=== PATIENT | female | born 1945 | race Caucasian/White ===

== ENCOUNTER → 2016-12-11 | Outpatient (CLI) | payer OTHER | LOC: CIMAGING 10:31 | PROVIDERS: ATTEND Family Medicine | DX: Z12.31 Encounter for screening mammogram for malignant neoplasm of breast (principal) | CPT/HCPCS: G0202 ==

== ENCOUNTER 2017-03-04 19:35 | Emergency (ER) | payer OTHER ==
--- NOTE | 2017-03-04 20:29 | EDPHY ---
H & P Smoking Status: Former smoker Time Seen by Provider: 03/04/17 20:15 HPI/ROS: CHIEF COMPLAINT: Syncope, head injury HISTORY OF PRESENT ILLNESS: 72-year-old female presents to the emergency department by private vehicle with her daughter after having a syncopal episode 2 days ago. The patient was in [place] and had a syncopal episode and fell and hit her head on the concrete floor. She had loss of consciousness. EMS was contacted and apparently the patient states that they told her not to go to the hospital because of possibly jeanette the flu with all sick patients in [place]. The patient flew back to [place] where she lives and her daughter brought her to the emergency department for evaluation. The patient complains of posterior headache associated with the lump on the back of her head where she hit her head. She does remember feeling a bit dizzy and lightheaded. She thinks that she may have been dehydrated. She has a history of COPD and typically uses her oxygen at night. She does states that since returning to [place] she has required oxygen even during the daytime. She has also had a productive cough for last few days. She did not receive a flu shot this year. She denies chest pain or difficulty breathing currently. Denies abdominal pain. Denies neck or back pain. Denies paresthesias in her upper or lower extremities. REVIEW OF SYSTEMS: Constitutional: No fever, no chills. Eyes: No double or blurry vision. ENT: No sore throat. Respiratory: Cough. no shortness of breath. Cardiac: No chest pain. Gastrointestinal: No abdominal pain, vomiting or diarrhea. Genitourinary: No dysuria. Musculoskeletal: No neck or back pain. Skin: No rashes. Neurological: headache. (Elton Arthur) Past Medical/Surgical History: COPD (Elton Arthur) Social History: Single and lives with her daughter in [place] (Elton Arthur) Physical Exam: General Appearance: Alert, no distress. Mentating normally and answering questions appropriately. Patient has palpable lump to the right posterior aspect of the scalp overlying occiput. No abrasion or puncture wound. Initial O2 saturation was 83% on room air. Patient typically uses 2 L nasal cannula oxygen. Eyes: Pupils equal and round. Extraocular motions are all intact. ENT: Mouth: Mucous membranes moist. No dental injury or malocclusion. Respiratory: No wheezing, rhonchi, or rales, lungs are clear to auscultation. Cardiovascular: Regular rate and rhythm. Gastrointestinal: Abdomen is soft and nontender, no masses, no rebound or guarding, bowel sounds normal. Neurological: Alert and oriented x 3, cranial nerves II through XII grossly intact Skin: Warm and dry, no rashes. Musculoskeletal: Nontender to palpate along the cervical, thoracic or lumbar spine. Neck is supple. Extremities: Full range of motion and no peripheral edema. Psychiatric: Patient is oriented X 3, there is no agitation. (Elton Arthur) Constitutional: Initial Vital Signs Temperature (C) 37 C 03/04/17 19:40 Heart Rate 76 03/04/17 19:40 Respiratory Rate 20 03/04/17 19:40 Blood Pressure 203/87 H 03/04/17 19:40 O2 Sat (%) 83 L 03/04/17 19:40 O2 Delivery Mode Room Air O2 (L/minute) 2 Allergies/Adverse Reactions: Sulfa (Sulfonamide Antibiotics) Allergy (Verified 02/04/13 11:39) Home Medications: Medication Instructions Recorded Albuterol [Proventil Inhaler] 1 - 2 puffs IH Q4 PRN 02/04/13 Aspirin [Aspirin 81mg (OTC)] 81 mg PO DAILY 02/04/13 amLODIPine BESYLATE [Norvasc 5 mg 5 mg PO DAILY 02/04/13 (RX)] Medical Decision Making - Diagnostics Imaging: Discussed imaging studies w/ call center manager Radiologist - Diagnostics EKG Interpretation: EKG was reviewed by Dr. Pebbles Stewart. See interpretation in trace master. ( Elton Arthur) Imaging Results: Imaging Impressions Head CT 03/04/17 20:29 Impression: Senescent features, with no acute intracranial abnormality identified on this unenhanced CT evaluation. If there is further clinical concern regarding the patient's symptoms, MR imaging is suggested, if not otherwise contraindicated. Findings were discussed with ELTON ARTHUR PA-C at 20:55, on 03/04/2017. Chest X-Ray 03/04/17 20:57 Impression: No acute abnormality, or substantial change from 11/22/2015. ED Course/Re-evaluation: 72-year-old female who had a syncopal event 2 days ago and fell and struck her head. CT imaging of her brain was normal. Laboratory studies were unremarkable. Sodium was slightly low at 131 and potassium was 3.1. EKG is unremarkable. Case was discussed with Dr. Pebbles Stewart, secondary supervising physician, who did not directly evaluate the patient but agrees with treatment and plan. She agrees with discharging the patient home with her daughter who is at bedside. ( Elton Arthur) The patient was evaluated and managed by the physician biology laboratory assistant. I have reviewed this chart and I agree with the findings and plan of care as documented , as indicated by my signature. I am the secondary supervising physician. ( Pebbles Stewart) Differential Diagnosis: Syncope including but not limited to vasovagal syncope, arrhythmia, dehydration , and blood loss. Head injury including but not limited to concussion, skull fracture, intraparenchymal contusion, subarachnoid, subdural and epidural hematoma. (Elton Arthur) - Data Points Laboratory Results: Laboratory Results 03/04/17 21:20 03/04/17 21:20 03/04/17 03/04/17 21:20 21:20 WBC 8.95 10^3/uL 10^3/uL (3.80-9.50) RBC 4.88 10^6/uL 10^6/uL (4.18-5.33) Hgb 14.4 g/dL g/dL (12.6-16.3) Hct 41.6 % % (38.0-47.0) MCV 85.2 fL fL (81.5-99.8) MCH 29.5 pg pg (27.9-34.1) MCHC 34.6 g/dL g/dL (32.4-36.7) RDW 14.3 % % (11.5-15.2) Plt Count 155 10^3/uL 10^3/uL (150-400) MPV 11.4 fL fL (8.7-11.7) Neut % (Auto) 65.9 % % (39.3-74.2) Lymph % (Auto) 24.5 % % (15.0-45.0) [place] % (Auto) 8.7 % % (4.5-13.0) Eos % (Auto) 0.4 % L % (0.6-7.6) Baso % (Auto) 0.2 % L % (0.3-1.7) Nucleat RBC Rel Count 0.0 % % (0.0-0.2) Absolute Neuts (auto) 5.89 10^3/uL 10^3/uL (1.70-6.50) Absolute Lymphs (auto) 2.19 10^3/uL 10^3/uL (1.00-3.00) Absolute Monos (auto) 0.78 10^3/uL 10^3/uL (0.30-0.80) Absolute Eos (auto) 0.04 10^3/uL 10^3/uL (0.03-0.40) Absolute Basos (auto) 0.02 10^3/uL 10^3/uL (0.02-0.10) Absolute Nucleated RBC 0.00 10^3/uL 10^3/uL (0-0.01) Immature Gran % 0.3 % % (0.0-1.1) Immature Gran # 0.03 10^3/uL 10^3/uL (0.00-0.10) Sodium 131 mEq/L L mEq/L (135-145) Potassium 3.1 mEq/L L mEq/L (3.5-5.2) Chloride 93 mEq/L L mEq/L (97-110) Carbon Dioxide 26 mEq/l mEq/l (22-31) Anion Gap 12 mEq/L mEq/L (8-16) BUN 18 mg/dL mg/dL (7-23) Creatinine 0.8 mg/dL mg/dL (0.6-1.0) Estimated GFR > 60 Glucose 111 mg/dL H mg/dL (70-100) Calcium 8.5 mg/dL mg/dL (8.5-10.4) Troponin I 0.013 ng/mL ng/mL (0.000-0.034) Medications Given: Discontinued Medications Sodium Chloride (Ns) 500 mls @ 0 mls/hr IV ONCE ONE PRN Reason: Wide Open Stop: 03/04/17 21:12 Last Admin: 03/04/17 21:00 Dose: 500 mls Departure - Departure Disposition: Home, Routine, Self-Care Clinical Impression: Syncope Qualifiers: Syncope type: unspecified Qualified Code(s): R55 - Syncope and collapse Head injury Qualifiers: Encounter type: initial encounter Qualified Code(s): S09.90XA - Unspecified injury of head, initial encounter Condition: Good Instructions: Syncope (ED), Head Injury (ED) Additional Instructions: Return to the emergency department if you developed worsening headache, vomiting , altered mental status, or if you feel worse in any way. Diet and activity as tolerated. Referrals: Virgil Smith MD [Primary Care Provider] - 1-2 days without fail
--- NOTE | 2017-03-04 20:52 | CPEKG ---
Heart Rate: 65 RR Interval: 923 P-R Interval: 140 QRSD Interval: 92 QT Interval: 440 QTC Interval: 458 P [place]: 67 QRS [place]: 67 T [place]: 62 EKG Severity - BORDERLINE ECG - EKG Impression: SINUS RHYTHM EKG Impression: BORDERLINE T ABNORMALITIES, ANT-LAT LEADS Electronically Signed By: Pebbles Stewart 04-Mar-2017 23:58:39
[2017-03-04] MEDS ORDERED: NS 500 ML IV ONE (21:11)
[2017-03-04 21:31] LABS: PLATELET COUNT 155 10^3/uL (150-400)
[2017-03-04 23:11] VITALS: BP 134/67; PULSE 88; RESP 16; TEMP 98.1; O2SAT 91
== END 2017-03-04 23:09 | disposition home or self-care (01) ==
DX: S09.90XA Unspecified injury of head, initial encounter (principal); R55 Syncope and collapse; J44.9 Chronic obstructive pulmonary disease, unspecified; Z79.82 Long term (current) use of aspirin; Z87.891 Personal history of nicotine dependence; W01.198A Fall on same level from slipping, tripping and stumbling with subsequent striking against other object, initial encounter; Y92.89 Other specified places as the place of occurrence of the external cause

== ENCOUNTER → 2018-05-04 | Outpatient (CLI) | payer OTHER | LOC: EMCIMAGING 13:46 | PROVIDERS: ATTEND Nurse Practitioner Family | DX: M79.89 Other specified soft tissue disorders (principal); M22.42 Chondromalacia patellae, left knee | CPT/HCPCS: 73562-PN; 93971-PN ==